=== PATIENT | female | born 1975 | race Caucasian/White ===

== ENCOUNTER 2017-05-08 03:58 | Emergency (ER) | payer SELFPAY ==
[2017-05-08 03:58] VITALS: BMI 22.0
[2017-05-08 04:06] VITALS: PULSE 70; RESP 14
[2017-05-08] MEDS ORDERED: DiphenhydrAMINE 50 mg/ml Inj IVP STA (04:22)
[2017-05-08] MEDS ORDERED: DiphenhydrAMINE 50 mg/ml Inj ONE (04:35)
[2017-05-08] MEDS ORDERED: cefTRIAXone IV 1 gm in Dextros 50 ML IVPB ONE (06:00)
--- NOTE | 2017-05-08 06:46 | CT ---
EXAM: CT Head Without Intravenous Contrast CLINICAL HISTORY: 41 years old, female; Pain; Headache; Headache not specified TECHNIQUE: Axial computed tomography images of the head/brain without intravenous contrast. All CT scans at this facility use one or more dose reduction techniques, viz.: automated exposure control; ma/kV adjustment per patient size (including targeted exams where dose is matched to indication; i.e. head); or iterative reconstruction technique. 161 images are submitted. COMPARISON: No relevant prior studies available. FINDINGS: Brain: Unremarkable. No hemorrhage. No significant white matter disease. No edema. Ventricles: Unremarkable. No ventriculomegaly. Bones/joints: Unremarkable. No acute fracture. Soft tissues: Unremarkable. Sinuses: Patchy sinus disease. Possible evidence for sinus surgery. Mastoid air cells: Unremarkable. No mastoid effusion. Orbits: The globes are intact. IMPRESSION: No evidence of an acute intracranial hemorrhage, midline shift or mass effect is identified.
--- NOTE | 2017-05-08 06:55 | C.PDOC ---
History Of Present Illness 41yo female, presents to ED with complaints of headache for the past day with associated vomiting and photophobia. Patient had an episode of vomiting in ER prior to evaluation. No weakness, numbness, dizziness. No other complaints. Time Seen by Provider: 05/08/17 04:07 Chief Complaint (Nursing): Headache History Per: Patient History/Exam Limitations: no limitations Onset/Duration Of Symptoms: Days (1) Current Symptoms Are (Timing): Still Present Associated Symptoms: Photophobia, Vomiting. denies: Extremity Weakness Past Medical History Reviewed: Historical Data, Nursing Documentation, Vital Signs Vital Signs: Last Vital Signs Temp 97.5 F L 05/08/17 07:08 Pulse 70 05/08/17 07:08 Resp 14 05/08/17 07:08 BP 120/80 05/08/17 07:08 Pulse Ox 99 05/08/17 07:08 - Medical History PMH: HTN Surgical History: No Surg Hx Family History: States: Unknown Family Hx - Social History Hx Tobacco Use: No Hx Alcohol Use: No Hx Substance Use: No - Immunization History Hx Tetanus Toxoid Vaccination: No Hx Influenza Vaccination: No Hx Pneumococcal Vaccination: No Review Of Systems Except As Marked, All Systems Reviewed And Found Negative. Constitutional: Negative for: Fever, Chills Eyes: Positive for: Vision Change Neurological: Positive for: Headache. Negative for: Weakness, Numbness, Dizziness Physical Exam - Physical Exam Appears: Non-toxic, No Acute Distress Skin: Normal Color, Warm, Dry Head: Atraumatic, Normacephalic Eye(s): bilateral: Normal Inspection, PERRL, EOMI Neck: Normal ROM, Supple Chest: Symmetrical Cardiovascular: Rhythm Regular Respiratory: Normal Breath Sounds Extremity: Normal ROM Neurological/Psych: Oriented x3, Normal Speech, Normal Cognition, Normal Motor, Normal Sensation ED Course And Treatment O2 Sat by Pulse Oximetry: 98 (RA) Pulse Ox Interpretation: Normal Progress Note: Patient given benadryl, reglan and toradol with mild improvement of symptoms. CT scan ordered and reviewed, shows no intracranial abnormalities. Findings discussed with patient and states she feels better. Stable for discharge home, advised to follow up with PCP in 2-3 days. Disposition Counseled Patient/Family Regarding: Diagnosis, Need For Followup, Rx Given - Disposition Referrals: [facility] [Outside] Disposition: HOME/ ROUTINE Disposition Time: 06:53 Condition: STABLE Additional Instructions: Increase PO fluids Take meds as directed Return to ER if worse Prescriptions: Acetaminophen/Butalbital/Caf [Fioricet] 2 tab PO TID PRN #20 tab PRN Reason: Headache Metoclopramide [Reglan] 1 tab PO TID PRN #14 tab PRN Reason: Nausea/Vomiting Instructions: Migraine Headache (DC) Forms: [employer] (Sami) Print Language: GUAMANIAN - Clinical Impression Clinical Impression: Migraine, Headache - PA / SECURITY MESSENGER / Resident Statement MD/DO has reviewed & agrees with the documentation as recorded. - Scribe Statement The provider has reviewed the documentation as recorded by the Scribe (Adrianne Ugalde) All medical record entries made by the Scribe were at my direction and personally dictated by me. I have reviewed the chart and agree that the record accurately reflects my personal performance of the history, physical exam, medical decision making, and the department course for this patient. I have also personally directed, reviewed, and agree with the discharge instructions and disposition.
[2017-05-08 07:09] VITALS: BP 120/80; TEMP 97.5
[2017-05-08 21:15] VITALS: O2SAT 98
== END 2017-05-08 07:09 | disposition home or self-care (01) ==
LOC: C.ER 03:58
DX: G43.909 Migraine, unspecified, not intractable, without status migrainosus (principal); I10 Essential (primary) hypertension
CPT/HCPCS: 70450; 96374; 96375; 99284; J1200; J1885; J2765